=== PATIENT | male | born 2005 | race Caucasian/White ===

== ENCOUNTER 2025-07-29 22:39 | Emergency (ER) | payer OTHER, SELFPAY ==
[2025-07-29 22:41] VITALS: BMI 28.1
--- NOTE | 2025-07-29 22:47 | EKG_ITS ---
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
--- NOTE | 2025-07-29 22:47 | XR_ITS ---
Examination: AP chest single view Technique one AP portable upright chest single view Date and time: July 29, 2025 at 11:30 PM Indications: Stroke alert today. Findings: Normal heart size No aspiration pneumonia. The osseous structures are intact Impression: No aspiration pneumonia
--- NOTE | 2025-07-29 22:47 | XR_ITS ---
Examination: CT brain head without contrast. 2-D sagittal coronal reconstructions Date and time of exam:July 29, 2025, 1050 hrs. Indications: Stroke alert, onset focal neurologic deficit left-sided facial numbness today CTDI: vol (mGy):51.7 DLP: (mGycm):1041 Technique: Multiple CT axial sections of the brain have been obtained, 5 mm slice thickness. Contrast has not been administered. 2-D sagittal, coronal reconstructions have been obtained Low dose protocols were performed. One or more of the following dose reduction techniques were used; automated exposure control, adjustment of the mA and/or KV according to patient size, use of iterative reconstruction technique. Findings: No significant ventricular enlargement. Intra-axial or extra-axial hemorrhage density is not seen. No mass effect or midline shift Basal cisterns are not remarkable. Fourth ventricle is midline. Cranial vault intact. Impression: Negative for acute hemorrhage, mass effect or midline shift
--- NOTE | 2025-07-29 22:47 | XR_ITS ---
Examination: CTA carotids with intravenous contrast CTA brain, head with intravenous contrast. 2-D sagittal, coronal reconstructions. 3-D reconstructions. Exam date and time: July 29, TE thousand 25, 11:00 AM Indications: Stroke alert, onset focal neurologic deficit today CTDI: vol (mGy) 42.78 DLP: (mGycm) 565 Technique: Multiple CTA axial brain, head carotid images post intravenous contrast injection 75 cc, [id number]. 2-D sagittal, coronal reconstructions. 3-D reconstructions, 3-D post processing including vascular maximum intensity projection images. Low dose protocols were performed. One or more of the following dose reduction techniques were used; automated exposure control, adjustment of the mA and/or KV according to patient size, use of iterative reconstruction technique. Findings: No significant common carotid carotid bifurcation or internal carotid artery stenoses Dominant right vertebral artery in the neck with no significant stenoses Intracranial vertebral arteries basilar artery posterior cerebral branches fill Middle cerebral anterior cerebral arteries show no large vessel occlusions Impression: No significant neck arterial stenoses No cerebral large vessel arterial occlusions or thrombus
--- NOTE | 2025-07-29 22:48 | PD.EDNEURO ---
Neuro Symptoms Deficit-RME/HPI General Chief Complaint: Neuro Symptoms/Deficit Stated Complaint: Neuro Time Seen by Provider: 07/29/25 22:47 Arrival date/time: 07/29/25 22:39 RME / HPI RME / HPI Narrative: See MDM for Dr. Antonio's HPI Documentation. Related Data Allergies Allergy/AdvReac Type Severity Reaction Status Date / Time No Known Allergies Allergy Verified 07/29/25 22:55 Review of Systems Review of Systems Systems Reviewed: All systems reviewed, normal except as documented Past Medical History Social History SMOKING STATUS: Never smoker ED Exam Narrative Physical exam: See MDM for Dr. Antonio's Physical Exam Documentation. Course Quality Measures none Orders Category Date Time Status Bedside Blood Glucose NOW Care 07/29/25 22:47 Completed Bedside COVID-19 Antigen Test NOW Care 07/29/25 22:49 Completed Bedside Influenza A&B Antigen Test NOW Care 07/29/25 22:49 Completed Deputy Attorney General NOW Care 07/29/25 22:47 Completed Continuous Pulse Oximetry NOW Care 07/29/25 22:47 Completed EKG (ED ONLY) *Do not use* NOW Care 07/29/25 22:47 Completed In and Out Catheter NEEDED Care 07/29/25 22:47 Completed Insert IV NOW Care 07/29/25 22:47 Completed NIH Stroke Scale now Care 07/29/25 22:47 Completed NPO NOW Care 07/29/25 22:47 Completed Nurse Swallow Screen x1 Care 07/29/25 22:47 Completed Consult to Neurology / Tele-Neurology Routine Cons 07/29/25 22:[address] angio stroke protocol Stat Exams 07/29/25 22:[address] chest abdomen pelvis wo Stat Exams 07/29/25 22:[address] stroke protocol Stat Exams 07/29/25 22:47 Completed EKG (ED Only) Stat Exams 07/29/25 22:47 Draft US gall bladder Stat Exams 07/29/25 22:50 Completed XR chest 1V portable Stat Exams 07/29/25 22:47 Completed Alcohol, Blood Medical Stat Lab 07/29/25 22:51 Completed Amylase Stat Lab 07/29/25 22:51 Completed Arterial Blood Gas Stat Lab 07/29/25 23:35 Completed B-Type Natriuretic Peptide Stat Lab 07/29/25 22:51 Completed BMP [Basic Metabolic Panel] Stat Lab 07/30/25 01:37 Completed Beta Hydroxybutyrate Stat Lab 07/29/25 22:51 Completed Bilirubin,Direct Stat Lab 07/29/25 22:51 Completed CBC Stat Lab 07/29/25 22:51 Completed CK [Creatine Kinase] Stat Lab 07/29/25 22:51 Completed CK [Creatine Kinase] Stat Lab 07/30/25 01:37 Completed CRP [C-Reactive Protein] Stat Lab 07/29/25 22:51 Completed Comprehensive Metabolic Panel Stat Lab 07/29/25 22:51 Completed D-Dimer Stat Lab 07/29/25 22:51 Completed Drug Screen,Urine Stat Lab 07/29/25 23:57 Completed ESR [Sed Rate (ESR)] Stat Lab 07/29/25 22:51 Completed Magnesium Stat Lab 07/29/25 22:51 Completed Partial Thromboplastin Time Stat Lab 07/29/25 22:51 Completed Procalcitonin Stat Lab 07/29/25 22:51 Completed Prothrombin Time with INR Stat Lab 07/29/25 22:51 Completed TSH [Thyroid Stimulating Hormone] Stat Lab 07/29/25 22:51 Completed Troponin I Stat Lab 07/29/25 22:51 Completed Diazepam Inj [Valium Inj] Med 07/29/25 22:51 Discontinued 2.5 mg IVP X1 ONE Ketorolac Inj [Toradol Inj] Med 07/29/25 22:50 Discontinued 30 mg IVP X1 ONE MethylPREDNISolone.* [SoluMEDROL Inj] Med 07/29/25 23:10 Discontinued 125 mg IVP X1 ONE Ondansetron Inj [Zofran Inj] Med 07/29/25 22:47 Discontinued 4 mg IVP Q4HR PRN POTASSIUM CHL 10% Liq 15 ML Med 07/30/25 00:40 Discontinued 40 meq PO X1 ONE Sodium Chloride 0.9% 1000 ml [Ns] 1,000 ml Med 07/29/25 22:50 Discontinued IV 999 mls/hr Sodium Chloride 0.9% 1000 ml [Ns] 1,000 ml Med 07/29/25 22:51 Discontinued IV 999 mls/hr Oxygen Delivery NOW RT 07/29/25 22:47 Completed Vital Signs Vital signs: Vital Signs Pulse Rate 86 07/29/25 22:50 Respiratory Rate 22 H 07/29/25 22:50 Blood Pressure 144/90 H 07/29/25 22:50 Pulse Oximetry (%) 100 07/29/25 22:50 Oxygen Delivery Method Room Air 07/29/25 22:50 Neuro Symptoms / Deficit MDM Narrative MDM Narrative:: This section includes all my notes and documentations, including HPI, PE, and ED course. Shane Antonio MD HPI: 20 y/o male here with many concerns. Including left facial numbness and right blurry vision that started an hour ago. And about 6 hours of diffuse tingling and cramping and abdominal pain. 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 Was stung by bees multiple times in different locations. No syncope or near syncope. No throat tightness. No chest pain or shortness of breath. No other complaints. ROS: All negative except as documented in HPI. Physical Exam: General: Alert and oriented. Appears anxious. Eyes: Conjunctivae and lids clear. EOMI. PERRL. ENT: No nasal congestion. Pharynx normal. Tympanic membrane normal bilaterally. Patent airway. Neck: Supple. Heart: RRR. Lungs: No respiratory distress. Good air movement. No rhonchi, wheezing, rales. Abdomen: Soft with tenderness, difficult to localize. Normal bowel sounds. No distension. No rebound or guarding. Back: No tenderness. Legs: No clubbing, cyanosis, edema. Skin: Warm and dry. Neuro: Alert and oriented X 3. Cranial Nerves II-XII grossly intact. No peripheral motor deficits. I reviewed all diagnostic test results: My interpretation of the EKG is: Sinus rhythm (85 bpm) with nonspecific ST-T changes. My interpretation of the chest x-ray is: NAD. My review of the Head/Brain CT report is: NAD. My review of the Head/Neck CTA report is: NAD. My review of the Chest/Abdomen/Pelvis CT report is: NAD. My review of the Gall Bladder US report is: NAD. Blood tests and urine tests unremarkable (except K 3.2). Covid/Influenza: Negative. At this point, diagnoses include: Headt Exhaustion Bee Sting Reaction Treatment here included: IVF Valium 2.5 mg IV Toradol 30 mg IV Zofran 4 mg IV Oral KCl 40 mEq Significant improvement noted. Recommended supportive care. Based on my best medical judgment, made decision no further evaluation or treatment indicated at this time. Patient understands and agrees to the discharge instructions customized and printed, see below. Discharge Instructions from Dr. Antonio: 1. After evaluation, you were treated for heat exhaustion and bee sting reaction. 2. Avoid prolonged exposure to heat and sun. 3. Your job is to stay hydrated.? If dark or yellow, increase oral fluid. 4. As you requested, you are being cleared to return to work instead of days off. 5. Some good choices are water (but not only water because it will cause electrolyte abnormalities), sports drinks like Gatorade (with less sugar content), coconut water, chicken stock, and other fluid with electrolytes (like Pedialyte). 6. See a private doctor on 08/01/25 for recheck and further care. Ask to review all test results and official radiology reports, to make sure you receive all necessary follow-ups and monitoring, including repeat CK level. Ask for help until you are completely better. 7. Seek immediate medical care with worsening or with any concerns. Shane Antonio MD Patient data External records reviewed:: [facility] previous records (No prior ED records available for review.) Clinical information provided by:: patient Social determinants that could affect healthcare access:: none Patient has the following chronic illnesses:: None reported How is presenting disease/condition affected by chronic disease/condition?: no chronic disease Evaluation data The following diagnostics were reviewed and interpreted by me:: lab results, radiology exam(s) and EKG tracing(s) (My interpretation of the EKG is: Sinus rhythm (85 bpm) with nonspecific ST-T changes. Shane Antonio MD) Lab and/or radiology exams considered but not ordered:: None Interpretation Summary: I reviewed all diagnostic test results: My interpretation of the EKG is: Sinus rhythm (85 bpm) with nonspecific ST-T changes. My interpretation of the chest x-ray is: NAD. My review of the Head/Brain CT report is: NAD. My review of the Head/Neck CTA report is: NAD. My review of the Chest/Abdomen/Pelvis CT report is: NAD. My review of the Gall Bladder US report is: NAD. Blood tests and urine tests unremarkable (except K 3.2). Covid/Influenza: Negative. Medications / Prescriptions Medications or Prescriptions considered but not ordered:: None Medication administrations:: Medication Administration History Discontinued Medications Diazepam (Diazepam Inj 5 Mg/Ml Vial 2 Ml) 2.5 mg IVP X1 ONE Stop: 07/29/25 22:52 Last Admin: 07/29/25 23:23 Dose: 2.5 mg Documented By: EE Sodium Chloride (Ns) 1,000 mls @ 999 mls/hr IV .Q1H1M ONE Stop: 07/29/25 23:50 Last Infusion: 07/30/25 00:31 Dose: Infused Documented By: Admin: 07/29/25 23:31 Dose: 999 mls/hr Documented By: EE Sodium Chloride (Ns) 1,000 mls @ 999 mls/hr IV .Q1H1M ONE Stop: 07/29/25 23:51 Last Infusion: 07/30/25 00:30 Dose: Infused Documented By: Admin: 07/29/25 23:31 Dose: 999 mls/hr Documented By: EE Ketorolac Tromethamine (Ketorolac Inj 30 Mg/Ml Vial) 30 mg IVP X1 ONE Stop: 07/29/25 22:51 Last Admin: 07/29/25 23:24 Dose: 30 mg Documented By: EE Methylprednisolone Sodium Succinate (Methylprednisolone Sod Succ 62.5 Mg/Ml 2ml Vial) 125 mg IVP X1 ONE Stop: 07/29/25 23:11 Last Admin: 07/29/25 23:24 Dose: 125 mg Documented By: EE Ondansetron HCl (Ondansetron Inj 2 Mg/Ml Inj 2 Ml) 4 mg IVP Q4HR PRN PRN Reason: NAUSEA OR VOMITING Stop: 08/28/25 22:46 Potassium Chloride (Potassium Chloride 10% 20 Meq/15 Ml Udc) 40 meq PO X1 ONE Stop: 07/30/25 00:41 Last Admin: 07/30/25 00:54 Dose: 40 meq Documented By: BD Treatment here included: IVF Valium 2.5 mg IV Toradol 30 mg IV Zofran 4 mg IV Oral KCl 40 mEq Consultations Consultation(s) initiated? (list below): Yes Consultation #1 (Physician, Specialty, Details): I discussed the case with our telehealth neurologist. About the presentation and exam and diagnostics and treatments here. Recommended outpatient management. Time: 23:09 Diagnosis Neuro Differential Diagnosis: delirium, subarachnoid hemorrhage, peripheral neuropathy, cerebrovascular accident, multiple sclerosis and transient cerebral ischemia Most likely diagnosis given after review of the tests above:: Heat Exhaustion Bee Sting Reaction Admission Indicated Admission indicated?: not indicated Explain why admission is indicated or not indicated:: With significant improvement and no condition needing emergent intervention, there was no indication for admission. Admission Request Was there a request for admission?: No Disposition Plan Disposition Plan: Discharge Discharge Attestation Discharge Attestation: The patient and all family members were given an opportunity to ask questions and understood the discharge instructions. Discharge instructions specifically effects, indications for sooner follow up or return to the emergency department, and the expected course of current diagnosis. Patient condition: Stable Discharge Plan Plan Patient Disposition: HOME (Self Care) Problem List Clinical Impression: Heat exhaustion, Bee sting reaction Patient/Caregiver Discharge Instructions Discharge Activity: activity as tolerated Education Materials: ED BEE STING General Allergic Rxn, ED Heat Exhaustion Additional Instructions: Discharge Instructions from Dr. Antonio: 1. After evaluation, you were treated for heat exhaustion and bee sting reaction. 2. Avoid prolonged exposure to heat and sun. 3. Your job is to stay hydrated.? If dark or yellow, increase oral fluid. 4. As you requested, you are being cleared to return to work instead of days off. 5. Some good choices are water (but not only water because it will cause electrolyte abnormalities), sports drinks like Gatorade (with less sugar content), coconut water, chicken stock, and other fluid with electrolytes (like Pedialyte). 6. See a private doctor on 08/01/25 for recheck and further care. Ask to review all test results and official radiology reports, to make sure you receive all necessary follow-ups and monitoring, including repeat CK level. Ask for help until you are completely better. 7. Seek immediate medical care with worsening or with any concerns. Print Language: Pakistani Stand Alone Forms: Helen Award Info., Patient Portal Info Letter
--- NOTE | 2025-07-29 22:49 | XR_ITS ---
Examination: CT chest, without intravenous contrast. CT abdomen, without intravenous contrast. CT pelvis, without intravenous contrast. 2-D sagittal and coronal reconstructions. 3-D reconstructions. Date and time of exam:July 29, 11:30 PM Indications: Chest pain shortness of breath today abdominal pain CTDI vol (mgy) 11.8 DLP (MGycm)957 Technique: Multiple CT images, 3.0 mm slice thickness, obtained chest, abdomen, pelvis, with the high-resolution 64 slice scanner.. Sagittal and coronal 2-D reconstructions are obtained. 3-D reconstructions Low dose protocols were performed. One or more of the following dose reduction techniques were used; automated exposure control, adjustment of the mA and/or KV according to patient size, use of iterative reconstruction technique. Findings: No thoracic aortic aneurysmal dilatation Pulmonary artery segments are not enlarged. No paratracheal tracheobronchial or bronchopulmonary adenopathy No visualized liver splenic lesion Contracted gallbladder No pancreatic mass. No renal or ureteral calculi, no hydronephrosis Normal appendix No bowel obstruction Urinary bladder intact Osseous structures intact Impression: No acute process in the chest or abdomen
[2025-07-29 22:50] VITALS: BP 144/90; PULSE 86; PULSE 96; RESP 100; RESP 22; O2SAT 100
--- NOTE | 2025-07-29 22:50 | XR_ITS ---
Examination: Abdomen sonogram, Limited Date and time of exam: July 29, 2025 1110 hrs. Indications: Right upper abdominal pain today Technique: Real-time brewster scale transabdominal sonographic images of the upper abdomen obtained. Findings: Normal gallbladder. Normal common bile duct 0.3 cm Pancreatic head 2.1 cm Liver 18.9 cm no liver lesions Normal hepatopedal portal venous flow Patent IVC Impression: Normal gallbladder Mild to moderate hepatomegaly
[2025-07-29 23:02] LABS: Beta Hydroxybutyrate 0.3 mmol/L (<0.6)
[2025-07-29 23:04] LABS: Basophils # (Auto) 0.1 Thou/mm3 (0.0-0.2); Basophils % (Auto) 1 % (0-2.5); Eosinophils # (Auto) 0.5 Thou/mm3 (0.0-0.5); Eosinophils % (Auto) 3 % (0-10); Hematocrit 45.0 % (41.0-53.0); Hemoglobin 16.2 g/dL (13.5-16.0); Immature Granulocytes Auto 0.05 Thou/mm3 (0.00-0.00); Lymphocytes # (Auto) 4.2 Thou/mm3 (1.0-4.8); Lymphocytes % (Auto) 31 % (10-50); Mean Corpuscular HGB Conc 36.0 g/dl (31.0-37.0); Mean Corpuscular Hemoglobin 30.6 pg (25.0-35.0); Mean Corpuscular Volume 85 fL (80-100); Monocytes # (Auto) 0.9 Thou/mm3 (0.0-0.8); Monocytes % (Auto) 7 % (0-12); Neutrophils # (Auto) 8.0 Thou/mm3 (1.8-7.7); Neutrophils % (Auto) 58 % (37-80); Nucleated Red Blood Cell # 0.00 Thou/mm3 (0.00-0.00); Nucleated Red Blood Cell % 0 /100 WBC (0); Platelet Count 311 Thou/mm3 (140-440); RDW Standard Deviation 37.1 fL (35.1-43.9); Red Blood Count 5.30 Miln/mm3 (4.50-5.90); White Blood Count 13.8 Thou/mm3 (4.5-11.0)
--- NOTE | 2025-07-29 23:11 | ESCONSULT_ITS ---
Tele Neuro Consultation Consultation Date 07/29/25 Most Recent Vital Signs Last Vital Signs Pulse 96 07/29/25 22:50 Resp 22 H 07/29/25 22:50 BP 144/90 H 07/29/25 22:50 Pulse Ox 100 07/29/25 22:50 O2 Del Method Room Air 07/29/25 22:50 Consultation Narrative [facility] Tele[facility]rology Consult Services Patient Name: Yoshi Molina Date of : 2005 Identification Number: Date of Service: 07/29/2025 22:48:12 Diagnosis: ? G44.221 - Chronic Headache Impression: ? This patient is likely experiencing a reaction to the multiple wasp stings he experienced earlier this evening I would not recommend IV thrombolytics at this time Symptoms are currently mild, and non disabling and the patient agrees Medical management for stings NO need for CTA or MRI at this time Sign Out: ? Discussed with Emergency Department Provider Advanced Imaging: Advanced Imaging Deferred because: Non-disabling symptoms as verified by the patient; no cortical signs so not consistent with LVO Stroke not suspected with clinical presentation and exam Metrics: Last Known Well: 07/28/2025 21:59:00 Dispatch Time: 07/29/2025 22:48:12 Arrival Time: 07/28/2025 22:41:00 Initial Response Time: 07/29/2025 22:54:25 Symptoms: L sided headache and numbness . Initial patient interaction: 07/29/2025 23:05:03 NIHSS Assessment Completed: 07/29/2025 23:07:09 Patient is not a candidate for Thrombolytic. Thrombolytic Medical Decision: 07/29/2025 23:07:12 Patient was not deemed candidate for Thrombolytic because of following reasons: other diagnosis suspected Bee sting reaction . CT Head: I personally reviewed all the CT images that were available to me and it showed: no acute abnormality Primary Provider Notified of Diagnostic Impression and Management Plan on: 07/29/2025 23:03:06 History of Present Illness: Patient is a 20 year old Male. Patient was brought by private transportation with symptoms of L sided headache and numbness . 20-year-old male with no significant past medical history earlier this evening was stung by 2 wasps and 2 different portions of his body He is unsure specifically where he was stung but he is now experiencing a left- sided headache numbness and tingling of the left side of his face and his left arm On arrival to the emergency department he is anxious appearing although he is de nying any shortness of breath Tongue appears to be swollen as well as his lips Past Medical History: ? There is no history of Hypertension ? There is no history of Diabetes Mellitus ? There is no history of Hyperlipidemia ? There is no history of Atrial Fibrillation ? There is no history of Coronary Artery Disease ? There is no history of Stroke ? There is no history of Covid-19 ? There is no history of Seizures ? There is no history of Migraine Headaches ? There is no history of Dementia/MCI Medications: No Anticoagulant use No Antiplatelet use Reviewed EMR for current medications Allergies: Reviewed Social History: Smoking: No Alcohol Use: No Drug Use: No Family History: There is no family history of premature cerebrovascular disease pertinent to this consultation ROS : 14 Points Review of Systems was performed and was negative except mentioned in HPI. Past Surgical History: There Is No Surgical History Contributory To Today?s Visit Examination: BP(144/90), Pulse(96), Blood Glucose(116) 1A: Level of Consciousness - Alert; keenly responsive + 0 1B: Ask Month and Age - Both Questions Right + 0 1C: Blink Eyes & Squeeze Hands - Performs Both Tasks + 0 2: Test Horizontal Extraocular Movements - Normal + 0 3: Test Visual Horta - No Visual Loss + 0 4: Test Facial Palsy (Use Grimace if Obtunded) - Normal symmetry + 0 5A: Test Left Arm Motor Drift - No Drift for 10 Seconds + 0 5B: Test Right Arm Motor Drift - No Drift for 10 Seconds + 0 6A: Test Left Leg Motor Drift - No Drift for 5 Seconds + 0 6B: Test Right Leg Motor Drift - No Drift for 5 Seconds + 0 7: Test Limb Ataxia (FNF/Heel-Ellis) - No Ataxia + 0 8: Test Sensation - Normal; No sensory loss + 0 9: Test Language/Aphasia - Normal; No aphasia + 0 10: Test Dysarthria - Normal + 0 11: Test Extinction/Inattention - No abnormality + 0 NIHSS Score: 0 Pre-Morbid Modified Weston Scale: 0 Points = No symptoms at all Spoke with : Dr. Antonio This consult was conducted in real time using interactive audio and video technology. Patient was informed of the technology being used for this visit and agreed to proceed. Patient located in hospital and provider located at home/office setting. Patient is being evaluated for possible acute neurologic impairment and high probability of imminent or life-threatening deterioration. I spent total of 35 minutes providing care to this patient, including time for face to face visit via telemedicine, review of medical records, imaging studies and discussion of findings with providers, the patient and/or family. Dr Matthew Rodriguez [facility] For Inpatient follow-up with [facility] physician please call [facility] at . As we are not an outpatient service for any post hospital discharge needs please contact the hospital for assistance. If you have any questions for the [facility] physicians or need to reconsult for clinical or diagnostic changes please contact us via [facility] at . Signature : Matthew Rodriguez
[2025-07-29 23:18] LABS: INR 1.0 (0.9-1.3); Partial Thromboplastin Time 29.2 Seconds (22.0-36.0); Prothrombin Time 10.3 Seconds (9.0-12.2)
[2025-07-29 23:21] LABS: Sed Rate (ESR) 20 mm/hr (0-15)
[2025-07-29] MEDS: DIAZEPAM INJ 5 MG/ML VIAL 2 ML 2.5 MG IVP (23:23)
[2025-07-29] MEDS: MethylPREDNISolone SOD SUCC 62.5 MG/ML 2ML VIAL 125 MG IVP (23:24)
[2025-07-29] MEDS: KETOROLAC INJ 30 MG/ML VIAL IVP (23:24)
[2025-07-29] MEDS: SODIUM CHLORIDE 0.9% 1000 ML 1,000 ML 999 ML IV ×2 (23:31)
[2025-07-29 23:38] LABS: Alanine Aminotransferase 34 U/L (10-49); Albumin, Serum 5.5 gm/dL (3.5-5.0); Albumin/Globulin Ratio 1.8 (1.2-2.2); Alkaline Phosphatase 99 U/L (46-116); Amylase 85 U/L (30-118); Anion Gap 15 (7-16); Aspartate Amino Transferase 23 U/L (0-34); BUN/Creatinine Ratio 8 Ratio (12-20); Bilirubin,Direct 0.2 mg/dL (0.0-0.3); Bilirubin,Total 0.5 mg/dL (0.3-1.2); Blood Urea Nitrogen 9 mg/dL (9-23); C-Reactive Protein 1.0 mg/dL (0.0-0.9); Calcium 11.0 mg/dL (8.3-10.6); Calcium (Corrected) 11.0 mg/dL (8.5-10.1); Carbon Dioxide 22.0 mMol/L (20.0-31.0); Chloride 103 mMol/L (98-107); Creatine Kinase 400 U/L (34-171); Creatinine (Component) 1.2 mg/dL (0.6-1.3); Estimated Creatinine Clearance 100.4 mL/min (>60); Globulin 3.0 gm/dL (2.3-3.5); Glucose 102 mg/dL (74-106); Magnesium 1.8 mg/dL (1.6-2.6); Osmolality,Calculated 278 (275-295); Potassium 3.2 mMol/L (3.4-5.1); Procalcitonin 0.11 ng/ml (0.0-0.49); Sodium 140 mMol/L (136-145); Thyroid Stimulating Hormone 1.89 uIU/mL (0.55-4.78); Total Protein 8.5 gm/dL (5.7-8.2); Troponin I < 0.002 ng/mL (0.0-0.045); eGFR > 60 See Note
[2025-07-29 23:39] LABS: Alcohol, Blood Medical < 3.0 mg/dL (0-10.0)
[2025-07-29 23:40] LABS: B-Type Natriuretic Peptide < 20 pg/mL (0-100)
[2025-07-29 23:41] LABS: Allen Test Performed/OK; Base Excess 1 (-3-3); HCO3 26 mEq/L (20-26); Inspired Oxygen, FIO2 21 %; O2 Saturation 96 % (91-98); PCO2 41 mmHg (32.0-48.0); PO2 73 mmHg (83-108); Puncture Site Right Radial; pH, Arterial 7.42 (7.35-7.45)
[2025-07-29 23:44] LABS: D-Dimer < 250 ng/mL (<600)
[2025-07-30] VITALS: BP 143/78; PULSE 66; RESP 16; TEMP 36.9; O2SAT 98
[2025-07-30 00:24] LABS: Amphetamine/Methamp Scrn,U Negative (Negative); Barbiturate Screen,Urine Negative (Negative); Benzodiazepines Screen,Urine Negative (Negative); Benzoylecgonine Screen, Ur Negative (Negative); Fentanyl Screen,Urine Negative (Negative); Opiate Screen,Urine Negative (Negative); THC Screen,Urine Negative (Negative)
[2025-07-30] MEDS: POTASSIUM CHLORIDE 10% 20 MEQ/15 ML UDC 40 MEQ PO (00:54)
[2025-07-30 02:00] VITALS: BP 126/80; PULSE 58; RESP 16; TEMP 37; O2SAT 100
[2025-07-30 02:16] LABS: Anion Gap 8 (7-16); BUN/Creatinine Ratio 6 Ratio (12-20); Blood Urea Nitrogen 6 mg/dL (9-23); Calcium 9.1 mg/dL (8.3-10.6); Carbon Dioxide 25.0 mMol/L (20.0-31.0); Chloride 110 mMol/L (98-107); Creatine Kinase 313 U/L (34-171); Creatinine (Component) 1.0 mg/dL (0.6-1.3); Estimated Creatinine Clearance 120.5 mL/min (>60); Glucose 136 mg/dL (74-106); Osmolality,Calculated 284 (275-295); Potassium 4.5 mMol/L (3.4-5.1); Sodium 143 mMol/L (136-145); eGFR > 60 See Note
[2025-07-30 02:46] VITALS: BP 126/80; PULSE 80; RESP 19; O2SAT 97
== END 2025-07-30 02:47 | disposition home or self-care (01) ==
PROVIDERS: Emergency Provider Emergency Medicine
DX: T67.5XXA Heat exhaustion, unspecified, initial encounter (principal); T63.441A Toxic effect of venom of bees, accidental (unintentional), initial encounter; R20.0 Anesthesia of skin; R20.2 Paresthesia of skin; R10.9 Unspecified abdominal pain; R51.9 Headache, unspecified; X30.XXXA Exposure to excessive natural heat, initial encounter; Y93.89 Activity, other specified; Y99.0 Civilian activity done for income or pay
CPT/HCPCS: 36415; 36600; 70450; 70496; 70498; 71045; 71250; 74176; 76705; 80048; 80053; 80307; 80320; 82010; 82150; 82248; 82550; 82803; 83735; 83880; 84145; 84443; 84484; 85025; 85379; 85610; 85652; 85730; 86140; 87400; 87811; 93005; 96361; 96374; 96375; 99285; A4649; J1885; J2919; J3360; J7030; Q9967; A9270; G0480